=== PATIENT | female | born 1990 | race Caucasian/White ===

== ENCOUNTER 2023-05-27 10:41 | Outpatient (OUT) | payer OTHER, SELFPAY ==
--- NOTE | 2023-05-27 11:20 | XR_ITS ---
The [address] [address] Patient Name: NAREN SOTO MRN: [id number] date: 1990 Sex: F Assigned Patient Location: [facility] Current Patient Location: [facility] Accession/Order Number: [id number] Exam Date: 05/27/2023 11:45 Report Date: 05/27/2023 14:00 At the request of: MIKA WEBER Procedure: XR abdomen 1V EXAMINATION: XR abdomen 1V HISTORY: kidney stones COMPARISON: No relevant comparison available. FINDINGS: KIDNEY/URETER - RIGHT: Right double-J ureteral stent in normal position. Scattered calcifications, nephrolithiasis KIDNEY/URETER - LEFT: No visible renal or ureteral calcifications. PELVIS: No visible ureteral calcifications. Any visible calcifications favor phleboliths. BOWEL: No abnormal dilation or deviation. BONES: No acute abnormality. Mild rotatory levocurvature of the lumbar spine OTHER: Negative. No abnormal gaseous collections. XR/XR abdomen 1V IMPRESSION: Right ureteral stent in normal position with right nephrolithiasis Electronically authenticated by: GITA TOLLIVER Date: 05/27/2023 14:00
--- NOTE | 2023-05-27 11:30 | XR_ITS ---
The [address] [address] Patient Name: NAREN SOTO MRN: [id number] date: 1990 Sex: F Assigned Patient Location: [facility] Current Patient Location: [facility] Accession/Order Number: [id number] Exam Date: 05/27/2023 11:45 Report Date: 05/27/2023 12:10 At the request of: COTY ALVARENGA Procedure: XR chest 2V EXAM: XR chest 2V HISTORY: Preop exam COMPARISON: None. TECHNIQUE: PA and lateral views of the chest. FINDINGS: The cardiomediastinal silhouette is normal. No focal consolidation is identified. There is no pneumothorax. No pleural effusion is noted. The osseous structures are intact. XR/XR chest 2V IMPRESSION: No acute cardiopulmonary process. Electronically authenticated by: JABARI ROSSI Date: 05/27/2023 12:10
== END 2023-05-27 10:42 | disposition home or self-care (01) ==
LOC: PST 10:45
PROVIDERS: Visit Provider Urology
DX: Z01.810 Encounter for preprocedural cardiovascular examination (principal); N20.1 Calculus of ureter; Z96.0 Presence of urogenital implants
CPT/HCPCS: 71046; 74018